=== PATIENT | female | born 1990 | race Caucasian/White ===

== ENCOUNTER 2022-09-02 13:28 | Outpatient (REF) | payer OTHER, SELFPAY ==
--- NOTE | ~2022-09-02 | XR_ITS ---
EXAMINATION: XR CHEST CLINICAL INFORMATION: Morbid obesity COMPARISON: None TECHNIQUE: 2 views of the chest were obtained. FINDINGS: No significant abnormality is noted involving the heart, lungs, mediastinum, bony thorax or soft tissues. XR/XR chest 2V IMPRESSION: Unremarkable examination.
--- NOTE | 2022-09-02 13:34 | ECG_ITS ---
Test Reason : WEIGHT MANAGEMENT Blood Pressure : / mmHG Vent. Rate : 081 BPM Atrial Rate : 081 BPM P-R Int : 144 ms QRS Dur : 096 ms QT Int : 378 ms P-R-T Axes : 030 016 027 degrees QTc Int : 439 ms Normal sinus rhythm Incomplete right bundle branch block Borderline ECG No previous ECGs available Referred By: Carlos Pelayo Electronically Signed By:APRIL GARZA MD
[2022-09-02 13:51] LABS: MANUAL DIFF FLAG NO
[2022-09-02 15:33] LABS: Basophils Percent Auto 0.2 % (0-2); Eosinophils Percent Auto 0.4 % (0-4); Hematocrit 37.8 % (37.0-47.0); Hemoglobin 11.6 g/dl (12.0-16.0); Imm Gran Abs Auto 0.02 X10*3/uL (0.00-0.03); Imm Gran Pct Auto 0.2 % (0.0-0.4); Lymphocytes Absolute Auto 1.8 X10*3/uL (1.2-4.9); Mean Corpuscular HGB Conc 30.7 g/dl (31.0-35.0); Mean Corpuscular Hemoglobin 21.4 pg (27.0-33.0); Mean Corpuscular Volume 69.7 fL (80.0-98.0); Mean Platelet Volume 11.3 fL (9.4-12.3); Monocytes Absolute Auto 0.4 X10*3/uL (0.1-1.2); Neutrophils Absolute Auto 6.3 x10*3/uL (2.0-8.3); Neutrophils Percent Auto 73.2 % (45-73); Platelet Count 355 X10*3/uL (160-400); Red Blood Count 5.42 X10*6/uL (4.20-5.50); Red Cell Distribution Width 17.2 % (11.0-16.0); White Blood Count 8.6 X10*3/uL (4.8-10.8)
[2022-09-02 16:14] LABS: Alanine Aminotransferase 12 U/L (0-31); Albumin Level 4.3 g/dL (3.5-5.0); Alkaline Phosphatase 94 U/L (39-117); Anion Gap 18 (12-20); Aspartate Amino Transferase 22 U/L (5-31); Bilirubin Total 0.4 mg/dL (0.0-1.0); Blood Urea Nitrogen 11 mg/dL (9-16); C Reactive Protein 1.69 mg/dL (< or = 0.50); Calcium 8.9 mg/dL (8.4-10.2); Carbon Dioxide 22 mmol/L (22-29); Chloride 102 mmol/L (96-108); Cholesterol 200 mg/dL; Estimated Glomerular Filt Rate > 60; Glucose Random 77 mg/dL (60-115); HDL Cholesterol 46 mg/dL; Iron 54 mcg/dL (30-160); LDL Cholesterol Calculated 134 mg/dl; Percent Iron Saturation 13 % (15-50); Potassium 3.9 mmol/L (3.3-5.1); Sodium 138 mmol/L (135-145); Total Iron Binding Capacity 410 mcg/dL (228-428); Total Protein 7.6 g/dL (6.5-8.0); Triglycerides 104 mg/dL; Unsaturated Iron Binding 356 ug/dL
[2022-09-02 16:36] LABS: Ferritin 23 ng/mL (10-122); Insulin 8 uU/mL (2-29); TSH reflex Free T4 0.62 uIU/mL (0.32-4.0); Vitamin D 25-OH Total 16.7 ng/mL (>30)
[2022-09-02 17:53] LABS: Folate 12.7 ng/mL (> or = 4.0); Vitamin B12 280 pg/mL (200-900)
[2022-09-02 20:50] LABS: Estimated Average Glucose 148 mg/dL; Hemoglobin A1c % 6.8 %
[2022-09-03 14:17] LABS: Calcium (PTHI) 8.9 mg/dL (8.6-10.2); PTHI 61 pg/mL (16-77)
[2022-09-04 11:24] LABS: H Pylori Breath Test Negative (Negative)
[2022-09-06 00:36] LABS: Zinc 70 mcg/dL (60-130)
[2022-09-07 17:47] LABS: Vitamin A 34 mcg/dL (38-98)
[2022-09-08 06:07] LABS: Vitamin B1 <6 nmol/L (8-30)
== END 2022-09-02 13:29 | disposition home or self-care (01) ==
LOC: HO.XRAY 13:28
PROVIDERS: Visit Provider Surgery
DX: E66.01 Morbid (severe) obesity due to excess calories (principal); Z11.0 Encounter for screening for intestinal infectious diseases
CPT/HCPCS: 36415; 71046; 80053; 80061; 82306; 82607; 82728; 82746; 83013; 83036; 83525; 83540; 83970; 84425; 84443; 84590; 84630; 85025; 86140; 93005; 99211

== ENCOUNTER → 2022-10-14 15:16 | Outpatient (BNVA) | payer OTHER, SELFPAY | PROVIDERS: PCP Internal Medicine; Visit Provider Dietitian, Registered | DX: E66.01 Morbid (severe) obesity due to excess calories (principal); Z71.3 Dietary counseling and surveillance | CPT/HCPCS: 97802 ==

== ENCOUNTER 2022-10-22 08:28 | Outpatient (REF) | payer OTHER, SELFPAY ==
--- NOTE | ~2022-10-22 | FL_ITS ---
EXAMINATION: XR FLUOROSCOPY UPPER GI WITH AIR CLINICAL INFORMATION: Morbid/severe obesity due to excess calories COMPARISON: None TECHNIQUE: Routine upper GI air-contrast study was performed in upright and lying position. FINDINGS: Following oral administration of thick barium and effervescent granules in upright view there is normal propagation of bolus from the oral cavity through the pharynx, esophagus into stomach without any evidence of obstruction, narrowing or stricture. On placing patient supine and prone lying the course, caliber and peristalsis of the stomach, duodenal bulb and the sweep is normal. There is a prominent indentation of left aspect of the GE junction likely from mucosal or mural thickening. It does not appear extrinsic. It is visualized on several images. FLUOROSCOPY TIME: 2.1 minute DOSE AREA PRODUCT: 35.145 uGy-m2 (microgray-meter squared) FL/FL upper GI w air IMPRESSION: Prominent indentation of left GE junction on AP view and several images. Likely mucosal or mural thickening. Otherwise unremarkable upper GI air-contrast study.
--- NOTE | ~2022-10-22 | US_ITS ---
EXAMINATION: US COMPLETE ABDOMEN WITH LIVER ELASTOGRAPHY CLINICAL INFORMATION: Morbid/severe obesity due to excess calories COMPARISON: None. TECHNIQUE: Real-time imaging of the abdominal viscera. Noninvasive ultrasound liver fibrosis assessment is performed using Gris ElastPQ point quantification shear wave elastography (2D-SWE) with a C5-2 MHz transducer. Multiple elastography samples are obtained. FINDINGS: PANCREAS: Normal. The visualized pancreatic head and body are normal in appearance. The remainder of the pancreas is obscured from visualization by the overlying bowel gas. ABDOMINAL AORTA: The proximal, middle, and distal aortic segments are normal in caliber. INFERIOR VENA CAVA: Visualized portions are normal. LIVER: The liver demonstrates normal size, contour and increased echogenicity. No focal lesion or intrahepatic biliary duct dilatation. The right lobe measures 17 cm in length. The left lobe measures 14.2 cm in length. Portal flow is hepatopedal Shear wave liver elastography median stiffness is 1.69 m/s (reference: normal median stiffness is 1.3 m/s or less). IQR/median stiffness to assess sampling precision is 0.22 (reference: good quality data set is IQR/median stiffness of 0.15 or less). GALLBLADDER: There are multiple echogenic shadowing gallstones without wall thickening. Gallbladder wall thickness is 0.3 cm. COMMON BILE DUCT: Normal in caliber measuring 0.4 cm in diameter. RIGHT KIDNEY: Normal. No hydronephrosis. No renal calculi or focal parenchymal lesions. The kidney measures 13.0 cm in maximum dimension. LEFT KIDNEY: Normal. No hydronephrosis. No renal calculi or focal parenchymal lesions. The kidney measures 13.2 cm in maximum dimension. SPLEEN: Normal. The spleen measures 11.1 cm in maximum dimension. FREE FLUID: None. US/US abdomen comp w elastography IMPRESSION: 1. Cholelithiasis with mild gallbladder wall thickening. Mild hepatic steatosis without focal lesion. 2. Liver elastography: Median liver stiffness measures 1.69 m/s which corresponds to cACLD (ruled out) REFERENCE: Society of Radiologists in Ultrasound Liver Stiffness Thresholds (2019): LIVER STIFFNESS THRESHOLDS: *Liver Stiffness equal or less than 1.3 m/s: High probability of being normal. *Liver Stiffness less than 1.7 m/s: In the absence of other known clinical signs, rules out compensated advanced chronic liver disease. *Liver Stiffness 1.7-2.1 m/s: Suggestive of compensated advanced chronic liver disease but need further test for confirmation. *Liver Stiffness over 2.1 m/s: Rules in compensated advanced chronic liver disease. *Liver Stiffness over 2.4 m/s: Suggestive of clinically significant portal hypertension. QUALITY OF DATA SET: *IQR/Median value equal or less than 0.15 implies a quality data set. *IQR/Median value over 0.15 implies a poor quality data set. SIGNIFICANT CHANGE FROM PRIOR EXAM: Significant change if liver stiffness measurement is 10% or greater from prior exam. OTHER CONSIDERATIONS: The stage of liver fibrosis may be overestimated in the setting of acute hepatitis, liver inflammation, elevated liver function tests, hepatic vascular congestion, obstructive cholestasis, non-fasting state, and infiltrative diseases such as amyloidosis and lymphoma. In some patients with NAFLD, the liver stiffness thresholds for compensated advanced chronic liver disease may be lower. In causes other than viral hepatitis and NAFLD, liver stiffness thresholds are not well established.
== END 2022-10-22 08:29 | disposition home or self-care (01) ==
LOC: HO.US 08:28
PROVIDERS: Visit Provider Surgery
DX: Z01.818 Encounter for other preprocedural examination (principal); E66.01 Morbid (severe) obesity due to excess calories
CPT/HCPCS: 74246; 76705; 76981

== ENCOUNTER → 2023-03-31 09:22 | Outpatient (BNVA) | payer OTHER, SELFPAY | PROVIDERS: PCP Internal Medicine; Visit Provider Surgery ==

== ENCOUNTER → 2023-04-27 09:56 | Outpatient (BNVA) | payer OTHER, SELFPAY | PROVIDERS: PCP Internal Medicine; Visit Provider Physician Assistant | DX: E66.01 Morbid (severe) obesity due to excess calories (principal); Z68.43 Body mass index [BMI] 50.0-59.9, adult | CPT/HCPCS: 99212 ==

== ENCOUNTER 2023-05-04 14:07 | Outpatient (AMB) | payer OTHER, SELFPAY ==
--- NOTE | 2023-05-04 14:07 | A.OFFWM_ITS ---
Intake Intake Visit Reasons: VIDEO BH Intake Allergies No Known Allergies Allergy (Verified 04/27/23 10:10) PFSH Medical History DJD (degenerative joint disease) Morbid obesity Surgical History Hx of section Family History Mother Glaucoma High cholesterol Father Hypertension Gout Sister No problems noted. Sister No problems noted. Sister No problems noted. Son Autism Daughter Autism Social History Alcohol intake: current Alcohol intake frequency: holidays/special occasions only Patient Tobacco Use Status: Never used Tobacco Behavioral Health Assessment Weight Management Therapy Therapy Notes Details PT presents for BH assessment as part of surgical Weight-loss management program. She has re-startedservices as previously had 3 visits in aug- but she had a family emergency and had to stop services. PT reports she she wants to pursue surgery to be at her healthy weight and as an act of self-love. On the other hand, patient denies any hx or concern with emotional/stress- eating; states she has never been in mental health treatment, denies any hx or concern with substances an/or addictive behavior and, denies any concern around suicidal ideation, self-harm and/or other-harm. PT had low scores on BES indicating lower risk for binge eating behavior and PHQ-9 indicated no active symptoms of depression. Per reports and mental status exam her functioning is within normal ranges and there is no evident concern from the mental health stand point. PT is cleared. Presenting Concerns Referral Source [facility] Provider Reason for referral Completion of behavioral health assessment as part of process for weight-loss surgery. Precipitating Event Obesity. Living Situation Current Living Situation Own At risk of losing current housing? No Satisfied with current living situation? Yes Comments PT lives with fiance and 2 children. Food/Weight/Diet Expectations of change PT wants to be at her healthy weight. She wants to adopt healthy habits moving forward and being able to maintaing the weight she losses. History/Relationship with food PT states she tends to skip meals, usually has 2 meals and snacks a lot after dinner. Never been a breakfast eater unless she doesn't eat at night. She finds herself snacking a lot, usually eats what kids eat. She also loves sweets. Tends to have brunch (bake potatoes with chicken, cheese or an egg sandwich), then after that she doesn't eat until later in the day around 6pm dinner. Usually has for dinner rice, beans, chicken, salad or pasta. After dinner she tends to get very hungry. 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 History/Relationship with weight Max weight gain after second , she was also pre-diabetic with that . Weight got out of control 6 years ago. History/Relationship with dieting Herbalife (1 year, lost 30Lbs), Keto diet (Couple months, lost 15Lbs), diet/exercise (2018, lost 20Lbs in 1 month, then 30Lbs total). P 2021. Binge Eating Do you frequently eat large amounts of food in short periods of time, not feeling physically hungry? No Do you feel out of control when you eat a large amount of food in a short period of time? Yes Do you eat large amounts of food rapidly and typically alone? No Night Eating Do you wake up at least once during the night to eat? No If you wake up in the night, do you find that it is necessary to eat something in order to fall back asleep? No Do you have little or no appetite in the morning and feel very hungry in the evening, often overeating between dinner and when you go to bed? No Social History Family history and relationship PT is engaged, she has been in a relationship with him for about 13 years. They have 2 children together. Daughter is 7, son is 8. Parents are alive, she has 2 siblings close. They are a close family and have good relationships. 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 Developmental history and status None reported. Social support Fianc?, Mother, dad, sisters. One of her sister had surgery 7 months ago. Community support None. Taoism/Spirituality None. Cultural/Ethnic information Born and raised in [facility]. Parents from [place] Bilingual. Legal Involvement and History Current or historical involvement with the legal system? None Education Highest grade completed 12th, completed HS. Preferred learning style Auditory, Verbal, Written, Learn by doing and Visual Currently enrolled in educational program? No Interested in further educational program? Yes (Real state license. 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 ) Wants help to find employment? No Meaningful activities Family activities. Financial Situation Describe current financial situation Comfortable Financial assistance? Other (Children gets Disability due to autism.) Service Service? No Mental Health and Addiction Treatment Current/Past substance abuse? No Current/Past addictive behavior concerns? No Psychiatric history Never been in therapy. Medical and Physical Health Summary Additional Medical History not covered in history None reported Sexual History concerns None reported Physical exam in the last year? Yes Pain Screening Current pain? No Pain in the last few months? No Medications Is the patient compliant with medications? No Does the patient have Rudolph Guardian in place? Not applicable Does the patient use complimentary health approaches? No Trauma/Abuse History History of trauma? No Questionnaires PHQ-9 Over the last 2 weeks, how often have you been bothered by any of the following problems? 1. Little interest or pleasure in doing things: not at all 2. Feeling down, depressed, or hopeless: not at all 3. Trouble falling or staying asleep, or sleeping too much: not at all 4. Feeling tired or having little energy: several days 5. Poor appetite or overeating: not at all 6. Feeling bad about yourself - or that you are a failure or have let yourself or your family down: not at all 7. Trouble concentrating on things, such as reading the newspaper or watching television: not at all 8. Moving or speaking so slowly that other people could have noticed. Or the opposite - being so fidgety or restless that you have been moving around a lot more than usual: not at all 9. Thoughts that you would be better off or of hurting yourself in some way: not at all Total score: 1 Depression Screening Interpretation: Negative Source: Developed by Drs. Earle Santos, Rachel Rueda, Esteban Del Rosario and colleagues, with an educational kassi from [employer]. Binge Eating Scale Group 1 A. I don't feel self-conscious about my wt. or body size when I'm with others. B. I feel concerned about how I look to others, but it normally does not make me fell disappointed with myself C. I do get self-conscious about my appearance and wt. which makes me feel disappointed in myself. D. I feel very self-conscious about my wt. and frequently I feel intense shame and disgust for myself. I try to avoid social contacts because of my self- consciousness. Response Group 1: A Group 2 A. I don't have any difficulty eating slowly in the proper manner. B. Although I seem to gobble down foods, I don't end up feeling stuffed because of eating to much. C. At times, I tend to eat quickly and then, I feel uncomfortably full afterwards. D. I have the habit of bolting down my food, without really chewing it. When this happens I usually feel uncomfortably stuffed because I've eaten to much. Response Group 2: C Group 3 A. I feel capable to control my eating urges when I want to. B. I feel like I have failed to control my eating more than the average person. C. I feel utterly helpless when it comes to feeling in control of my eating urges. D. Because I feel so helpless about controlling my eating I have become very desperate about trying to get control. Response Group 3: A Group 4 A. I don't have the habit of eating when I'm bored. B. I sometimes eat when I'm bored, but often I'm able to get busy and get my mind off food. C. I have a regular habit of eating when I'm bored, but occasionally, I can use some other activity to get my mind off eating. D. I have a strong habit of eating when I'm bored. Nothing seems to help me breath the habit. Response Group 4: A Group 5 A. I'm usually physically hungry when I eat something. B. Occasionally, I eat something on impulse even though I really am not hungry. C. I have the regular habit of eating foods, that I might not really enjoy, to satisfy a hungry feeling even though physically, I don't need the food. D. Although I'm not physically hungry, I get a hungry feeling in my mouth that only seems to be satisfied when I eat a food, like sandwich, that fills my mouth. Sometimes, when I eat the food to satisfy my mouth hunger, I then spit the food out so I won't gain weight. Response Group 5: A Group 6 A. I don't feel any guilt or self-hate after I overeat. B. After I overeat, occasionally I feel guilt or self-hate. C. Almost all the time I experience strong guilt or self-hate after I overeat. Response Group 6: A Group 7 A. I don't lose total control of my eating when dieting even after periods when I overeat. B. Sometimes when I eat a forbidden food on a diet, I feel like I blew it and eat even more. C. Frequently, I have the habit of saying to myself, I've blown it now, why not go all the way, when I overeat on a diet. When that happens I eat more. D. I have a regular habit of starting a strict diets for myself but I break the diets by going on an eating binge. My life seems to be either a feast or famine. Response Group 7: A Group 8 A. I rarely eat so much food that I feel uncomfortably stuffed afterwards. B. Usually about once a month, I each such a quantity of food, I end up feeling very stuffed. C. I have regular periods during the month when I eat large amounts of food, either at mealtime or at snacks. D. I eat so much food that I regularly feel quite uncomfortable after eating and sometimes a bit nauseous. Response Group 8: A Group 9 A. My level of calorie intake does not go up very high or go down very low on a regular basis. B. Sometimes after I overeat, I will try to reduce my caloric intake to almost nothing to compensate for the excess calories I've eaten. C. I have a regular habit of overeating during the night. It seems that my routine is not to be hungry in the morning but overeat in the evening. D. In my adult years, I have had week-long periods where I practically starve myself. This follows periods when I overeat. It seems I live a life of either feast or famine. Response Group 9: B Group 10 A. I usually am able to stop eating when I want to. I know when enough is enough. B. Every so often, I experience a compulsion to eat which I can't seem to control. C. Frequently, I experience strong urges to eat which I seem unable to control, but at other times I can control my eating urges. D. I feel incapable of controlling urges to eat. I have a fear of not being able to stop eating voluntarily. Response Group 10: A Group 11 A. I don't have any problem stopping eating when I feel full. B. I usually can stop eating when I feel full but occasionally overeat leaving me feeling uncomfortably stuffed. C. I have a problem stopping eating once I start and usually I feel uncomfortably stuffed after I eat a meal. D. Because I have a problem not being able to stop eating when I want, I sometimes have to induce vomiting to relieve my stuffed feeling. Response Group 11: A Group 12 A. I seem to eat just as much when I'm with others, Family social gatherings as when I'm by myself. B. Sometimes, when I'm with other persons, I don't eat as much as I want to eat because I'm self-conscious about my eating. C. Frequently, I eat only a small amount of food when others are present, because I'm very embarrassed about my eating. D. I feel so ashamed about overeating that I pick times to overeat when I know no one will see me. I feel like a closet eater. Response Group 12: A Group 13 A. I eat three meals a day with only an occasional between meal snack. B. I eat 3 meals a day, but I also normally snack between meals. C. When I am snacking heavily, I get in the habit of skipping regular meals. D. There are regular periods when I seem to be continually eating, with no planned meals. Response Group 13: B Group 14 A. I don't think much about trying to control unwanted eating urges. B. At least some of the time, I feel my thoughts are pre-occupied with trying to control my eating urges. C. I feel that frequently I spend much time thinking about how much I ate or about trying not to eat anymore. D. It seems to me that most of my waking hours are pre-occupied by thoughts about eating or not eating. I feel like I'm constantly struggling not to eat. Response Group 14: A Group 15 A. I don't think about food a great deal. B. I have strong craving for food but they last only for brief periods of time. C. I have days when I can't seem to think about anything else but food. D. Most of my days seem to be pre-occupied with thoughts about food. I feel like I live to eat. Response Group 15: A Group 16 A. I usually know whether or not I'm physically hungry. I take the right portion of food to satisfy me. B. Occasionally, I feel uncertain about knowing whether or not I'm physically hungry. A these times it's hard to know how much food I should take to satisfy me. C. Even though I might know how many calories I should eat, I don't have any idea what is a normal amount of food for me. Response Group 16: A Binge Eating Score: 4 Score less than 17 Minimal Risk Score between 18-26 Moderate Risk Score between 27-46 High Risk Assessment & Plan Assessment & Plan (1) Adjustment disorder, unspecified: Code(s): F43.20 - Adjustment disorder, unspecified Qualifiers: Adjustment disorder type: unspecified type Qualified Code(s): F43.20 - Adjustment disorder, unspecified Plan After completing the assessment and comparing scores from Binge eating scale and PHQ9, at this time, this database report writer has no concerns about patient's mental status. Client is cleared and there is no need for follow up. Clinician has advised client about available resources if ever in need to access additional support and has encourage client to participate in post-op groups. Telehealth Telehealth Location of provider rendering services: other (Home office. [place], [place].) Location of patient: address on file Patient Identification confirmed using: Name, : Yes Telehealth method: video Patient verbally consented to treatment: Yes Patient verbally consented to billing insurance company: Yes Patient informed of any privacy concerns related to visit: Yes Minutes spent on Phone/Video with Pt.: 60 Coding Level of Care Code New Pt Tele Psy Diag Bertha ([id number]) Patient Type New Diagnoses Adjustment disorder, unspecified F43.20 Adjustment disorder type: unspecified type Time Spent (min) 60
== END 2023-05-04 16:05 | disposition home or self-care (01) ==
LOC: HO.HBST 14:07
PROVIDERS: PCP Internal Medicine; Visit Provider Counselor Mental Health
DX: F43.20 Adjustment disorder, unspecified (principal)
CPT/HCPCS: 90791

== ENCOUNTER → 2023-05-04 14:07 | Outpatient (BNVA) | payer OTHER, SELFPAY | PROVIDERS: PCP Internal Medicine; Visit Provider Counselor Mental Health ==

== ENCOUNTER 2023-05-26 11:04 | Outpatient (AMB) | payer OTHER, SELFPAY ==
--- NOTE | 2023-05-26 10:47 | A.OFFVIS_ITS ---
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 Has been struggling with feeling satisfied with shakes and food. She does not feel like the plan can ever work for her. 10am - shake - sometimes late, not yet today not hungry 1pm - bar or yogurt 3pm - shakes over 5 minutes - then feels hungry 6pm - 6 oz salmon with broccoli or grilled chicken with 8 oz vegetable 9 pm- bar Exercise - not started yet Pre op work up completed as follows: SWL classes -? - this time appts? - not seen, cleared by Hui April 2023 ? ? RD appts? - seen once, missed appt 05/13 - needs to be rescheduled H pylori - negative Aug 2022 Labs - multiple deficiienceis will repeat CXR - normal Aug 2022 ECG -?borderline, incomplete R BBB, NSR ULS - fatty liver and cholelithiasis UGI - unremarkable [facility] Medical History DJD (degenerative joint disease) Morbid obesity Surgical History Hx of section Family History Mother Glaucoma High cholesterol Father Hypertension Gout Sister No problems noted. Sister No problems noted. Sister No problems noted. Son Autism Daughter Autism Social History Alcohol intake: current Alcohol intake frequency: holidays/special occasions only Patient Tobacco Use Status: Never used Tobacco Assessment & Plan Assessment & Plan (1) Morbid obesity: Code(s): E66.01 - Morbid (severe) obesity due to excess calories Plan: Pt is struggling with the food plan - not eating slowly, not using the meal times well sometimes. She has not been able to start exercising yet either. No weight loss yet. We discussed the importance of eating/drinking her meals slowly and on time and the reasoning behind it. She states she will try again. We discussed trying to do exercise videos at home if she is unable to get to the gym. She states she will try this also. TBP or LS 2 miles 5 d/week. Next appt in 3 weeks. Patient is morbidly obese and is not considered stable at this time. I spent 25 minutes in total with patient reviewing/updating records, examining the patient and counseling the patient on weight management as detailed above. Telehealth Telehealth Location of provider rendering services: practice address Location of patient: address on file Patient Identification confirmed using: Name, : Yes Telehealth method: video Patient verbally consented to treatment: Yes Patient verbally consented to billing insurance company: Yes Patient informed of any privacy concerns related to visit: Yes Coding Level of Care Code Tele Est Pt Level 4 (51324) Diagnoses Morbid obesity E66.01
[2023-05-26 11:00] VITALS: BMI 50.5
== END 2023-05-26 11:09 | disposition home or self-care (01) ==
LOC: HO.HBS 11:04
PROVIDERS: PCP Internal Medicine; Visit Provider Physician Assistant
DX: E66.01 Morbid (severe) obesity due to excess calories (principal); Z68.43 Body mass index [BMI] 50.0-59.9, adult
CPT/HCPCS: 99213

== ENCOUNTER → 2023-05-26 11:04 | Outpatient (BNVA) | payer OTHER, SELFPAY | PROVIDERS: PCP Internal Medicine; Visit Provider Physician Assistant ==

== ENCOUNTER → 2024-03-28 09:15 | Outpatient (BNVA) | payer SELFPAY | PROVIDERS: PCP Internal Medicine; Visit Provider Internal Medicine | DX: Z02.79 Encounter for issue of other medical certificate (principal) ==

== ENCOUNTER → 2025-03-08 09:34 | Outpatient (BNVA) | payer SELFPAY | PROVIDERS: PCP Internal Medicine; Visit Provider Physician Assistant Medical | DX: Z02.79 Encounter for issue of other medical certificate (principal) ==